=== PATIENT | female | born 1990 ===

== ENCOUNTER 2017-07-20 05:56 | Inpatient (IN) | payer OTHER ==
[2017-07-16 08:55] VITALS: BMI 24.2
[2017-07-20] MEDS ORDERED: Lactated Ringer's 1,000 ML IV ONE ×2 (07:02→09:10)
[2017-07-20] MEDS ORDERED: ePHEDrine 50 mg/ml Inj ONE (07:11)
[2017-07-20] MEDS ORDERED: Succinylcholine 200 mg/10 ml Inj IV ONE (07:11)
[2017-07-20] MEDS ORDERED: Rocuronium 10 mg/ml (5 ml) ONE (07:11)
[2017-07-20] MEDS ORDERED: Phenylephrine 10 mg/ml Inj ONE (07:11)
[2017-07-20] MEDS ORDERED: Propofol 10 mg/ml Inj (20 ML) ONE (07:11)
--- NOTE | 2017-07-20 07:20 | CP.SDSHP ---
Same Day Surgery H & P - History Proposed Procedure: Laparoscopy with ovarian cystectomy, laparoscopy with myomectomy possible laparotomy Pre-Op Diagnosis: large ovarian cyst by sono and MRI with changes compatible with dermoid or endometrioma and a fundal fibroid Pt has been experiencing pelvic pain - Previous Medical/Surgical History Pain: 4.Moderate Pain Previous Surgical History: wisdom teeth - Allergies Allergies: Allergies No Known Allergies Allergy (Verified 07/16/17 08:55) - Physical Exam Vital Signs: Vital Signs 07/20/17 06:38 Temperature 98.4 F Pulse Rate 80 Respiratory 18 Rate Blood Pressure 119/79 O2 Sat by Pulse 99 Oximetry Mental Status: Alert & Oriented x3 Neuro: WNL Heart: WNL Lungs: WNL GI: WNL - {Optional Preform as Required} Breast: WNL Abdomen: WNL FILM HISTORIAN: Other Other Pertinent Findings: sono and MRI showing adnexal cyst and fibroid - Impression Impression: pelvic pain possible dermoid cyst vs endometrioma and fibroid - Date & Time Date: 07/20/17 Time: 07:26 Short Stay Discharge - Short Stay Discharge Admitting Diagnosis/Reason for Visit: N83.29/D25.2/R10.2 Disposition: HOME/ ROUTINE Referrals: Liam Calderón MD [Primary Care Provider] -
[2017-07-20] MEDS ORDERED: Midazolam 2 MG/2 ML VIAL ONE (07:41)
[2017-07-20] MEDS ORDERED: Lidocaine 1% Inj (20ml) ONE (07:44)
[2017-07-20] MEDS ORDERED: Bupivacaine 0.5% Inj(30mL) ONE (07:44)
[2017-07-20] MEDS ORDERED: Dexamethasone 4 mg/1 ml ONE (09:19)
[2017-07-20] MEDS ORDERED: Neostigmine Methylsulfate 3mg/3ml Syringe IV ONE (09:54)
[2017-07-20] MEDS ORDERED: Naloxone 0.4 mg/ml Inj (Adult) IVP PRN (10:23)
[2017-07-20] MEDS: HYDROmorphone 0.5 mg/0.5 ml ISec IVP PRN ×4 (10:35→12:05)
[2017-07-20] MEDS: cefOXitin Sodium 1 GM in Sodium Chloride 0.9% 100 ML IVPB SCH (17:10)
[2017-07-20] MEDS: Lactated Ringer's 1,000 ML IV SCH ×2 (17:10→20:36)
[2017-07-21] MEDS: Lactated Ringer's 1,000 ML IV SCH ×5 (00:04→18:21)
[2017-07-21] MEDS: cefOXitin Sodium 1 GM in Sodium Chloride 0.9% 100 ML IVPB SCH ×2 (00:57→08:53)
[2017-07-21 07:49] LABS: MEAN CELL VOLUME 79.9 fl (81.0-99.0); MEAN CORPUSCULAR HEMOGLOBIN 26.6 pg (27.0-31.0); MEAN CORPUSCULAR HGB CONC 33.3 g/dL (33.0-37.0); RED CELL DISTRIBUTION WIDTH 13.7 % (11.5-14.5); WHITE BLOOD COUNT 11.7 K/uL (4.8-10.8)
--- NOTE | 2017-07-21 12:08 | CP.PCM.PN ---
Subjective - Date & Time of Evaluation Date of Evaluation: 07/21/17 Time of Evaluation: 12:05 - Subjective Subjective: patient c/o having gas and some nausea Objective - Vital Signs/Intake and Output Vital Signs (last 24 hours): Temp Pulse Resp BP Pulse Ox 97.7 F 68 18 107/58 L 100 07/21/17 07:38 07/21/17 07:38 07/21/17 07:38 07/21/17 07:38 07/21/17 07:38 Intake and Output: 07/21/17 07/21/17 06:59 18:59 Intake Total 1600 Output Total 1750 350 Balance -150 -350 - Medications Medications: Current Medications Docusate Sodium (Colace) 100 mg PO BID [facility] Lactated Ringer's (Lactated Ringer's) 1,000 mls @ 125 mls/hr IV .Q8H [facility] Last Admin: 07/21/17 02:19 Dose: Not Given Ketorolac Tromethamine (Toradol) 30 mg IVP Q6 PRN PRN Reason: Pain, moderate (4-7) Naloxone HCl (Narcan) 0.1 mg IVP Q2M PRN PRN Reason: Shortness of Breath Ondansetron HCl (Zofran Inj) 4 mg IVP Q8 PRN PRN Reason: Nausea/Vomiting Last Admin: 07/21/17 08:53 Dose: 4 mg Simethicone (Mylicon Chew Tab) 80 mg PO TID PRN PRN Reason: Flatulence - Labs Labs: 07/21/17 05:30 - Eye Exam Additional comments: v.s stable afebrile incision clean and healing well Assessment and Plan - Assessment and Plan (Free Text) Assessment: stable pod1 abdomen soft incision clean Plan: continue present care will give colace dc dressing encourage ambulation
[2017-07-21] MEDS: Simethicone 80 mg Chewtab PO PRN ×2 (12:41→21:50)
[2017-07-22 00:25] VITALS: RESP 18
[2017-07-22] MEDS: Simethicone 80 mg Chewtab PO PRN (09:11)
--- NOTE | 2017-07-22 11:25 | CP.PCM.PN ---
Subjective - Date & Time of Evaluation Date of Evaluation: 07/22/17 Time of Evaluation: 11:22 - Subjective Subjective: Denies N/v, tolerating diet well No SOB, chfest pains or leg pains Objective - Vital Signs/Intake and Output Vital Signs (last 24 hours): Temp Pulse Resp BP Pulse Ox 98.3 F 70 18 103/68 99 07/22/17 07:33 07/22/17 07:33 07/22/17 07:33 07/22/17 07:33 07/22/17 07:33 - Medications Medications: Current Medications Bisacodyl (Dulcolax) 10 mg SD ONCE ONE Stop: 07/22/17 11:20 Docusate Sodium (Colace) 100 mg PO BID [facility] Last Admin: 07/22/17 09:10 Dose: 100 mg Lactated Ringer's (Lactated Ringer's) 1,000 mls @ 125 mls/hr IV .Q8H [facility] Last Admin: 07/21/17 18:21 Dose: Not Given Ketorolac Tromethamine (Toradol) 30 mg IVP Q6 PRN PRN Reason: Pain, moderate (4-7) Last Admin: 07/22/17 09:11 Dose: 30 mg Naloxone HCl (Narcan) 0.1 mg IVP Q2M PRN PRN Reason: Shortness of Breath Ondansetron HCl (Zofran Inj) 4 mg IVP Q8 PRN PRN Reason: Nausea/Vomiting Last Admin: 07/21/17 08:53 Dose: 4 mg Simethicone (Mylicon Chew Tab) 80 mg PO TID PRN PRN Reason: Flatulence Last Admin: 07/22/17 09:11 Dose: 80 mg - Labs Labs: 07/21/17 05:30 - Head Exam Head Exam: ATRAUMATIC - Neck Exam Neck Exam: Full ROM - Respiratory Exam Respiratory Exam: NORMAL BREATHING PATTERN - GI/Abdominal Exam GI & Abdominal Exam: Normal Bowel Sounds Additional comments: soft ND, depressible Incision clean and dry no suppt or discharge no sign or infection - Extremities Exam Extremities Exam: Full ROM Additional comments: no leg edema or calf tenderness Teds in place - Neurological Exam Neurological Exam: Alert, Awake, Oriented x3 Assessment and Plan - Assessment and Plan (Free Text) Assessment: stable POD #2 Plan: Dulcolax suppt this am and D/C home this pm with follow up office eleni
--- NOTE | 2017-07-22 11:31 | CP.PCM.DIS ---
Provider - Provider Date of Admission: 07/20/17 10:18 Attending physician: Kumar Mercado MD Primary care physician: Liam Calderón MD Time Spent in preparation of Discharge (in minutes): 10 Diagnosis - Discharge Diagnosis (1) Pelvic pain Status: Acute (2) Fibroid uterus Status: Chronic (3) Pelvic mass Status: Acute Hospital Course - Lab Results Lab Results: Most Recent Lab Values WBC 11.7 K/uL (4.8-10.8) H D 07/21/17 05:30 RBC 4.51 Mil/uL (3.80-5.20) 07/21/17 05:30 Hgb 12.0 g/dL (12.0-16.0) D 07/21/17 05:30 Hct 36.0 % (34.0-47.0) 07/21/17 05:30 MCV 79.9 fl (81.0-99.0) L D 07/21/17 05:30 MCH 26.6 pg (27.0-31.0) L 07/21/17 05:30 MCHC 33.3 g/dL (33.0-37.0) 07/21/17 05:30 RDW 13.7 % (11.5-14.5) 07/21/17 05:30 Plt Count 125 K/uL (130-400) L 07/21/17 05:30 Blood Type O POSITIVE 07/20/17 08:57 Antibody Screen Negative 07/20/17 08:57 BBK History Checked Patient has bt 07/20/17 08:57 - Hospital Course Hospital Course: laparoscopy revealed a fibroid uterus and a 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, and laparotomy with myomectomy dont and removal of rt ovarian mass Post ofp course was good no complications Discharge Exam - Head Exam Head Exam: ATRAUMATIC - Respiratory Exam Respiratory Exam: NORMAL BREATHING PATTERN - GI/Abdominal Exam GI & Abdominal Exam: Normal Bowel Sounds Additional comments: soft not distended depressible and incision clean and dry no suppt or discharge no sign of infection - Extremities Exam Extremities exam: full ROM Additional comments: no leg edema or calf tenderness - Neurological Exam Neurological exam: Alert, Oriented x3 Discharge Plan - Follow Up Plan Additional Instructions: pelvic and bed rest and follow up office 1 wk, rx for percocet given Referrals: Liam Calderón MD [Primary Care Provider] -
[2017-07-22] MEDS ORDERED: Chlorhexidine Gluconate 1 APPL/PKT TP ONE (13:50)
[2017-07-22 16:22] VITALS: BP 106/72; PULSE 111; TEMP 98.5; O2SAT 98
--- NOTE | 2017-07-26 22:11 | OP ---
PROCEDURE DATE: 07/20/2017 PREOPERATIVE DIAGNOSES: 1. Pelvic pain. 2. Right adnexal mass. 3. Fibroid uterus. POSTOPERATIVE DIAGNOSES: 1. Pelvic pain. 2. Right dermoid cyst. 3. Left polycystic ovary. PROCEDURE PERFORMED: 1. Laparoscopy. 2. Laparotomy with right ovarian cystectomy. 3. Laparotomy with abdominal myomectomy. 4. Fulguration of left ovary. ANESTHESIA USED: General endotracheal per Dr. Trujillo. ESTIMATED BLOOD LOSS: 100 mL. DRAINS USED: None. REPLACEMENT USED: None. SURGEON: Dr. Mercado. DISTRICT ASSOCIATE JUDGE: Dr. Anand who was there for the entire duration of the case. Assistance was needed in positioning the patient, opening up the abdomen. Assisting in surgery and closure of the abdomen. FINDINGS: 1. Cervix appears closed, long, posterior, mobile. 2. Uterus appears anteverted, mobile with a 5 cm fundal fibroids, and a smaller 1 cm anterior fibroid. 3. Large 5-6 cm complex right ovarian cyst, ovarian cystectomy performed, and appears full of fatty and thick fluid and some hairs visualized. 4. Left ovary with multiple small cyst, fulguration using electrocoagulation done. DESCRIPTION OF PROCEDURE: The patient was taken to the operating room, and placed on the operating table in supine position. Following induction of general endotracheal anesthesia, the patient was then replaced in the dorsal lithotomy position. Perineal and genital and abdominal areas were draped and prepped in the usual sterile manner. A Berry catheter was then inserted into the bladder and clear fluid was then evacuated from the bladder. The patient was then examined under anesthesia with some of the above findings. A heavy weighted speculum was then placed in the posterior wall of the vagina, disposed in the cervix. The anterior lip of the cervix was then grasped using a single tooth tenaculum and retracted superiorly. The endocervical canal was gently dilated using Juanjose's dilators in an increasing size manner and a HUMI cannula was then inserted into the endometrial cavity in order to manipulate the uterus. A single-tooth tenaculum was then removed. No bleeding noted. And attention was then given to the abdomen. At the umbilicus, a Veress needle was then introduced into the abdomen and about 5 liters of carbon dioxide were then introduced into the abdomen and thus creating a normal peritoneum. Following this, a Veress needle was then removed and a 1-cm incision was then made at the umbilical area. Through this, under direct visualization, a laparoscopic trocar was then inserted and through the trocar sheath, a laparoscope was then inserted. With visualization of the pelvic organ. Visualization of the area underneath the insertion of the trocar revealed no signs of trauma or bleeding. At this time, the uterus appears to be anteverted mobile with a 5 cm fundal fibroid and a small 1 cm anterior fibroid. The left ovary appears normal size, but multiple small clear cyst. The right ovary appears with a large 5-6 cm complex cyst. At this time, the incision for laparotomy was then made based on all the findings and technically not being contusive to laparoscopic cystectomy with spillage of possible dermoid. At this time, the pneumoperitoneum was partially evacuated and trocar was then removed. The abdomen was draped and prepped in usual sterile manner and a Pfannenstiel incision was then made using sharp dissection two fingerbreadths above the symphysis pubis. The incision was extended down to the subcutaneous tissue using sharp dissection. Hemostasis obtained by means of electrocoagulation. At this time, we then proceeded to identify the rectus muscle, which was then slid in the midline disposing the peritoneum. Peritoneal layer was then picked up using two Rafia clamp, retracted superiorly and then inferiorly using sharp dissection. Incision of the peritoneum was then extended superiorly and inferiorly on the direct visualization. At this time, the uterus was then grasped and fundal fibroids were then removed in total. By clamping, cutting, and using 0 Vicryl suture for hemostasis in a continued manner. Following this, we then proceeded to a identify the right ovary, a large 5-6 cm complex cyst noted to be present. Using sharp dissection, the cyst was then resected. Hemostasis was obtained by means of electrocoagulation. Part of the cyst appears to contain fatty tissue and some hair. Cyst was sent to pathology for proper pathological evaluation. The remaining portion of the right ovary were then sutured using 2-0 chromic suture in size and then all chromic suture in a continuous interlocking manner. Hemostasis check and found to be well secured. At this time, the left ovary was then visualized and appears to be multiple small cyst clear in nature and these little cysts were all fulgurated using electrocoagulation on the direct visualization without any complications. The pelvic cavity was then thoroughly irrigated using saline solution, all operative areas checked, hemostatically secured. An intercede was then placed over the myomectomy area in the uterus and over the right ovary in order to prevent future adhesions. At this time, all operative areas checked, hemostatically secured and the peritoneum was then closed using 0 Vicryl suture in a continuous manner. The fascia was also closed after the rectus muscle have been approximated at the midline using the same 0 Vicryl suture. The fascia was then closed using 1 Vicryl suture in a continuous manner. Fascia was then checked and found to be free of defects. Subcutaneous tissue was then irrigated using saline solution and approximated using several interrupted 2-0 plain sutures. The skin was then approximated using a 3-0 Prolene in a subcuticular fashion. The 1 cm umbilical incision was closed at the fascia using a single 0 Vicryl suture and the skin was closed using a Dermabond. The HUMI cannula have been previously removed. No bleeding noted. The patient tolerated the procedure well. There were no complications. Sponge, instrument and needle count were correct x3. Clear fluid noted to be present in the Berry bag at this time. The patient was then transferred to the recovery room in satisfactory condition. Kumar Mercado MD
== END 2017-07-22 13:40 | disposition home or self-care (01) | DRG 743 ==
LOC: H.OPSURG 05:56 → H.MEDSURG1 10:18
PROVIDERS: ADMIT Specialist; ATTEND Specialist
PROC: 0U510ZZ Destruction of Left Ovary, Open Approach (ICD-10-PCS; 2017-07-20)
PROC: 3E0P05Z Introduction of Adhesion Barrier into Female Reproductive, Open Approach (ICD-10-PCS; 2017-07-20)
PROC: 0UB00ZZ Excision of Right Ovary, Open Approach (ICD-10-PCS; principal; 2017-07-20 07:45)
PROC: 0UB90ZZ Excision of Uterus, Open Approach (ICD-10-PCS; 2017-07-20 07:45)
DX: D25.9 Leiomyoma of uterus, unspecified (principal); D27.0 Benign neoplasm of right ovary; E28.2 Polycystic ovarian syndrome; Z53.31 Laparoscopic surgical procedure converted to open procedure